=== PATIENT | male | born 1955 | race Caucasian/White ===

== ENCOUNTER 2018-11-09 19:03 | Emergency (ER) | payer SELFPAY ==
[~2018-11-09] VITALS: Ht 172.7 cm; Wt 72.2 kg
[2018-11-09 19:37] VITALS: BP 127/72; PULSE 111; RESP 16; Ht 172.7 cm; Wt 72.2 kg
[2018-11-09] MEDS ORDERED: ACET1TAB40 PO (21:43)
[2018-11-09] MEDS ORDERED: CEPH-443 PO (21:43)
[2018-11-09] MEDS ORDERED: IBUP-1542 PO (21:43)
--- NOTE | 2018-11-09 21:46 | ERD ---
ER Documentation Chief Complaint Chief Complaint mouth and dental pain x3 days. HPI 63-year-old male presents with dental pain is swelling above the frontal teeth for last 3 days. Denies fevers, vomiting, shortness of breath. Patient has not seen a dentist recently. ROS All systems reviewed and are negative except as per history of present illness. Medications Home Meds Active Scripts Acetaminophen with Codeine (Acetaminophen-Cod #3 Tablet) 1 Each Tablet, 1 TAB PO Q6H PRN for PAIN, #10 TAB Prov:STIVEN SORTO MD 11/09/18 Ibuprofen* (Motrin*) 600 Mg Tab, 600 MG PO Q6, #20 TAB Prov:STIVEN SORTO MD 11/09/18 Cephalexin* (Keflex*) 500 Mg Capsule, 500 MG PO QID for 10 Days, CAP Prov:STIVEN SORTO MD 11/09/18 Allergies Allergies: Coded Allergies: No Known Drug Allergy (Verified Allergy, Unknown, 11/09/18) PMhx/Soc Medical and Surgical Hx: pt denies Medical Hx, pt denies Surgical Hx Hx Alcohol Use: No Hx Substance Use: No Hx Tobacco Use: No Smoking Status: Never smoker FmHx Family History: No diabetes, No coronary disease, No other Physical Exam Vitals Vital Signs Date Temp Pulse Resp B/P (MAP) Pulse Ox O2 O2 Flow FiO2 Time Delivery Rate 11/09/18 98.0 111 16 127/72 98 19:37 (90) Physical Exam Const: No acute distress Head: Atraumatic Eyes: Normal Conjunctiva ENT: Normal External Ears, Nose and Mouth. Poor dentition and multiple areas of the edentulousness and open roots. Swelling above the frontal teeth. No facial erythema or induration. Airway patent. Neck: Full range of motion. No meningismus. Resp: Clear to auscultation bilaterally Cardio: Regular rate and rhythm, no murmurs Abd: Soft, non tender, non distended. Normal bowel sounds Skin: No petechiae or rashes Back: No midline or flank tenderness Ext: No cyanosis, or edema Neur: Awake and alert Psych: Normal Mood and Affect Results 24 hrs Current Medications Medications Dose Sig/Kandice Start Time Status Last (Trade) Ordered Route PRN Stop Time Admin Dose Reason Admin Cephalexin 500 mg ONCE ONCE 11/09/18 (Keflex) PO 22:00 11/09/18 22:01 Ibuprofen 600 mg ONCE ONCE 11/09/18 (Motrin) PO 22:00 11/09/18 22:01 Procedures/MDM Patient has signs and symptoms of an early dental abscess above the frontal teeth. There is no evidence of airway obstruction, signs of sepsis, facial cellulitis. Will treat with Keflex, ibuprofen, short course of Tylenol 3 and recommendations for dental follow-up and return precautions for difficulty swallowing, difficulty breathing, new or worsening symptoms. The patient was stable with no new complaints during the ER course. Clinically, there is no current evidence to suggest meningitis, sepsis, acute abdomen, pneumonia, stroke, acute coronary syndrome, pulmonary embolism, aortic dissection or any other emergent condition appearing to require further evaluation or hospitalization. Patient counseled regarding my diagnostic impression and care plan. Prior to discharge all questions answered. Pt agrees with treatment plan and understands strict return precautions. Pt is instructed to follow up with primary care provider within 24-48 hours. Precautionary instructions provided including instructions to return to the ER if not improving or for any worsening or changing symptoms or concerns. Departure Diagnosis: Primary Impression: Dental abscess Condition: Stable Patient Instructions: Dental Abscess [facility] Usted se diaz hecho un examen mdico de control que le indica que no est en savanah condicin que requiera tratamiento urgente en el Departamento de Emergencia. Un estudio ms profundo y el tratamiento de carpenter condicin pueden esperar sin ningn riesgo hasta que usted sea atendida/o en el consultorio de carpenter mdico o savanah clnica. Es responsabilidad suya arreglar savanah jigna para el seguimiento del kyle. MANEJO DE CONDICIONES NO URGENTES EN EL FUTURO 1) Si usted tiene un mdico de atencin primaria: Usted debera llamar a carpenter mdico de atencin primaria antes de venir al departamento de emergencia. Despus de las horas de consultorio, carpenter doctor o carpenter asociado/a est disponible por telfono. El mdico o enfermero de marti en el servicio telefnico puede asesorarle por dionna medio para atender el problema, o kyle contrario se puede programar savanah jigna. 2) Si usted no tiene un mdico de atencin primaria: Llame al mdico o clnica de referencia que aparece abajo juni las horas de consultorio para hacer savanah jigna para que le vean. CLINICAS: [facility] [id number] [facility] [phone] [facility] [phone] [facility] [phone] [facility] [address] [facility] [phone] [address] [facility] [phone] [facility] ([facility] walk in clinic) Additional Instructions: Va al carpenter doctor/ specialista para mas evaluacon en el proximo semana. posiblemente necesita autorizado de carpenter doctor primario para specialista. Regresa para fiebre, o mas o nueva simptomas. STIVEN SORTO MD Nov 09, 2018 21:46
[2018-11-09] MEDS ORDERED: IBUPROFEN 600 MG TAB PO ONE (22:00)
[2018-11-09] MEDS ORDERED: CEPHALEXIN 500 MG CAP PO ONE (22:00)
== END 2018-11-09 22:18 | disposition home or self-care (01) ==
LOC: FTE 19:03
DX: K04.7 Periapical abscess without sinus (principal)
CPT/HCPCS: 99283